=== PATIENT | male | born 1975 | race Caucasian/White ===

== ENCOUNTER 2022-12-17 19:35 | Emergency (ER) | payer BC, OTHER ==
[2022-12-17 20:01] VITALS: BP 134/90; PULSE 120; RESP 20; TEMP 98.1; BMI 28.7
[2022-12-17 23:00] LABS: BASO % 0.9 % (0-2.0); EOS % 0.1 % (0-4.5); HEMATOCRIT 42.1 % (35.4-49); HEMOGLOBIN 14.8 GM/dL (11.7-16.9); MCH 35.3 pg (25.7-33.7); MCHC 35.3 g/dl (32.0-35.9); MEAN CELL VOLUME 100.2 fl (80-96); MEAN PLT VOLUME 7.3 fl (7.5-11.1); MONO % 5.9 % (3.8-10.2); NEUT % 79.1 % (42.8-82.8); PLATELET COUNT 287 10^3/uL (134-434); RDW 12.9 % (11.9-15.9); WHITE BLOOD COUNT 5.2 K/mm3 (4.0-10.0)
[2022-12-17 23:08] LABS: EPI CELLS 3 /uL (0-25.1); HYALINE CASTS 1 /uL (0-3.1); PH,URINE 5.5 (5.0-8.0); URINE APPEARANCE CLEAR; URINE BACTERIA 6 /uL (0-1359); URINE BILIRUBIN NEGATIVE (NEGATIVE); URINE COLOR DK YELLOW; URINE GLUCOSE (UA) 1+ (NEGATIVE); URINE KETONE 4+ (NEGATIVE); URINE LEUK ESTERASE NEGATIVE (NEGATIVE); URINE NITRITE NEGATIVE (NEGATIVE); URINE PROTEIN 1+ (NEGATIVE); URINE RBC 12 /uL (0-23.9); URINE WBC 4 /uL (0-25.8)
[2022-12-17 23:13] LABS: URINE AMPHETAMINES NEGATIVE (NEGATIVE)
[2022-12-17 23:14] LABS: OPIATES, URI NEGATIVE (NEGATIVE); PHENCYCLIDINE,URINE NEGATIVE (NEGATIVE); URINE BARBITURATES NEGATIVE (NEGATIVE)
[2022-12-17 23:27] LABS: CALCIUM 8.5 mg/dL (8.5-10.1)
[2022-12-17 23:28] LABS: ALBUMIN 4.2 g/dl (3.4-5.0); BLOOD UREA NITROGEN 13.6 mg/dL (7-18)
[2022-12-17 23:31] LABS: CREATININE 0.9 mg/dL (0.55-1.3)
[2022-12-17 23:33] LABS: BILIRUBIN,TOTAL 1.7 mg/dL (0.2-1); TOT PROT 7.7 g/dl (6.4-8.2)
[2022-12-17 23:39] LABS: COCAINE, UR NEGATIVE (NEGATIVE); METHADONE, UR NEGATIVE (NEGATIVE); URINE BENZODIAZEPINES NEGATIVE (NEGATIVE)
[2022-12-18] MEDS ORDERED: ASPIRIN 81 MG CHEWABLE TABLETS ONE (00:04)
== END 2022-12-18 00:15 | disposition left against medical advice (07) ==
LOC: JER 19:35
DX: R42 Dizziness and giddiness (principal)
CPT/HCPCS: 36415; 70450-TC; 80053; 80307; 81003; 84443; 84484; 85025; 85379; 99285-25